=== PATIENT | male | born 2000 | race Caucasian/White ===

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

== ENCOUNTER 2023-04-15 09:45 | Emergency (ER) | payer SELFPAY ==
[~2023-04-15] VITALS: Ht 182.9 cm; Wt 72.7 kg
[2023-04-15 09:51] VITALS: BP 152/65
[2023-04-15] MEDS ORDERED: triamcinolone acetonide 40mg/ml inj IM ONE (10:25)
== END 2023-04-15 10:36 | disposition home or self-care (01) ==
LOC: ER 09:45
DX: L23.7 Allergic contact dermatitis due to plants, except food (principal); J45.909 Unspecified asthma, uncomplicated
CPT/HCPCS: 96372; 99283; J3301

== ENCOUNTER 2025-02-01 20:13 | Emergency (ER) | payer OTHER ==
[~2025-02-01] VITALS: Ht 182.9 cm; Wt 70.3 kg
[2025-02-01] MEDS: ketorolac trometh 30MG/ML vial 30 MG/ML VIAL IV ONE (21:49)
[2025-02-01] MEDS ORDERED: HYDR-3965 PO (21:51)
[2025-02-01] MEDS: ketorolac trometh 30MG/ML vial 30 MG/ML VIAL IM ONE (22:00)
[2025-02-01 22:06] VITALS: BP 140/81; PULSE 74; RESP 16; TEMP 98.3; O2SAT 99
[2025-02-02] MEDS ORDERED: HYDR-3964 PO (15:27)
== END 2025-02-01 22:07 | disposition home or self-care (01) ==
LOC: ER 20:14
DX: M25.511 Pain in right shoulder (principal); J45.909 Unspecified asthma, uncomplicated; Z79.1 Long term (current) use of non-steroidal anti-inflammatories (NSAID); W18.39XA Other fall on same level, initial encounter; Y93.89 Activity, other specified; Y92.89 Other specified places as the place of occurrence of the external cause; Y99.8 Other external cause status
CPT/HCPCS: 73000; 73030; 96372; 99284; J1885; A4565